=== PATIENT | female | born 1970 | race Caucasian/White ===

== ENCOUNTER 2023-05-27 15:20 | Emergency (ER) | payer OTHER ==
[~2023-05-27] VITALS: Ht 170.2 cm; Wt 81.6 kg
[2023-05-27 15:25] VITALS: BP_SYST 141; PULSE 102; RESP 18; TEMP 97.8; O2SAT 97
[2023-05-27 16:13] VITALS: BP_SYST 141; PULSE 99; RESP 18; TEMP 97.2; O2SAT 96
== END 2023-05-27 16:13 | disposition home or self-care (01) ==
LOC: SED 15:20
DX: S00.01XA Abrasion of scalp, initial encounter (principal); Z79.899 Other long term (current) drug therapy; W22.8XXA Striking against or struck by other objects, initial encounter; Y93.89 Activity, other specified; Y92.89 Other specified places as the place of occurrence of the external cause; Y99.8 Other external cause status
CPT/HCPCS: 99281